=== PATIENT | male | born 1985 | race American Indian/Alaskan Native ===

== ENCOUNTER 2018-06-12 07:30 | Emergency (ER) | payer OTHER ==
[2018-06-12] MEDS ORDERED: NACL 0.9% 1000 ML 1,000 ML IV ONE (07:35)
[2018-06-12 07:59] LABS: Basophils # (Auto) 0.1 K/mm3 (0.0-0.1); Basophils % (Auto) 1.2 % (0.0-1.8); Eosinophils # (Auto) 0.2 K/mm3 (0.0-0.4); Eosinophils % (Auto) 5.6 % (0.0-4.3); Hematocrit 43.8 % (35.5-45.6); Hemoglobin 14.7 gm/dl (11.8-15.2); Lymphocytes # (Auto) 1.9 K/mm3 (1.2-5.4); Lymphocytes % (Auto) 42.2 % (13.4-35.0); Mean Corpuscular HGB Conc 34 % (32-34); Mean Corpuscular Volume 94 fl (84-94); Monocytes # (Auto) 0.4 K/mm3 (0.0-0.8); Platelet Count 232 K/mm3 (140-440); Red Blood Count 4.65 M/mm3 (3.65-5.03); Red Cell Distribution Width 13.5 % (13.2-15.2)
[2018-06-12 08:06] LABS: Bilirubin,Urine NEG (Negative); Blood,Urine NEG (Negative); Color,Urine Yellow (Yellow); Mucus,Urine FEW /HPF; Protein,Urine <15 mg/dL mg/dL (Negative)
[2018-06-12 08:47] LABS: Alanine Aminotransferase 18 units/L (7-56); Albumin 4.3 g/dL (3.9-5); BUN/Creatinine Ratio 13; Blood Urea Nitrogen 16 mg/dL (9-20); Calcium 9.1 mg/dL (8.4-10.2); Hemolysis Index 14
[2018-06-12] MEDS ORDERED: TYLENOL #3 PO ONE (09:02)
--- NOTE | 2018-06-12 09:29 | XRay Report ---
EXAM: XR ABD SERIES W CXR 1V HISTORY: abd pain TECHNIQUE: Supine and erect views of the abdomen; frontal single view CXR dated 06/12/2018 at 9:12 AM COMPARISON: None available. FINDINGS: ABDOMEN: Abundant fecal material is seen within the right-sided large bowel loops and rectum; nonspec ific finding; rule out constipation. The bowel gas pattern is nonspecific and nonobstructive. There is no gross organomegaly or free intraperitoneal air is seen. There are bilateral small pelvic calci fications (approximately 5.3 mm left pelvic calcification and approximately 2.9 mm distal right pelvi c calcification), presumed to represent a phleboliths, but consider follow-up CT if distal ureteral o bstructing stone is clinically suspected. The visualized bony structures are within normal limits. CHEST: The heart size and mediastinum are within normal limits. The lung verdugo and costophrenic angl es are clear. There is no acute parenchymal infiltrate, pleural effusion, or pneumothorax seen. The v isualized bony structures are within normal limits. IMPRESSION: 1. Abundant fecal material is seen within the right-sided large bowel loops and rectum; nonspecific finding; rule out constipation. 2. Bilateral small pelvic calcifications (approximately 5.3 mm left pelvic calcification and approxi mately 2.9 mm distal right pelvic calcification), presumed to represent a phleboliths, but consider f ollow-up CT if distal ureteral obstructing stone is clinically suspected. 3. No evidence for acute cardiopulmonary disease seen. This document is electronically signed by Duy Lauren MD., June 12 2018 09:27:45 AM ET
--- NOTE | 2018-06-12 09:57 | Emergency Department Report ---
ED Abdominal Pain HPI - General Chief Complaint: Abdominal Pain Stated Complaint: STOMACH PAIN Time Seen by Provider: 06/12/18 09:02 Source: patient Mode of arrival: Ambulatory Limitations: No Limitations - History of Present Illness Initial Comments: This is a 33-year-old male nontoxic, well nourished in appearance, no acute signs of distress presents to the ED with c/o of left upper abdominal pain x 2 months. Patient stated pain is cramping intermittent with burning sensation in the epigastric area. Patient denies any nausea or vomiting. Patient denies chest pain, short of breath, fever, chills, headache, stiff neck, numbness or tingling. Patient denies any diarrhea or constipation. Patient denies any recent travels. Patient denies any allergies. MD Complaint: abdominal pain -: month(s) (2) Location: [facility] Radiation: none Migration to: no migration Severity scale (0 -10): 3 Quality: cramping, aching Consistency: intermittent Improves With: nothing Worsens With: nothing Associated Symptoms: denies: nausea, vomiting, diarrhea, fever, chills, constipation, dysuria, hematemesis, hematochezia, melena, hematuria, anorexia, syncope - Related Data Previous Rx's Medication Instructions Recorded Last Taken Type Acetaminophen/Codeine [Tylenol 1 tab PO Q6H PRN #12 tab 06/12/18 Unknown Rx /Codeine # 3 tab] Docusate Sodium [Colace] 100 mg PO DAILY PRN #20 capsule 06/12/18 Unknown Rx Omeprazole 40 mg PO DAILY #20 capsule. 06/12/18 Unknown Rx Allergies Allergy/AdvReac Type Severity Reaction Status Date / Time No Known Allergies Allergy Unverified 06/12/18 07:32 ED Review of Systems ROS: Stated complaint: STOMACH PAIN Other details as noted in HPI Constitutional: denies: chills, fever Eyes: denies: eye pain, eye discharge, vision change ENT: denies: ear pain, throat pain Respiratory: denies: cough, shortness of breath, wheezing Cardiovascular: denies: chest pain, palpitations Endocrine: no symptoms reported Gastrointestinal: abdominal pain. denies: nausea, vomiting, diarrhea Genitourinary: denies: urgency, dysuria Musculoskeletal: denies: back pain, joint swelling, arthralgia Skin: denies: rash, lesions Neurological: denies: headache, weakness, paresthesias Psychiatric: denies: anxiety, depression Hematological/Lymphatic: denies: easy bleeding, easy bruising ED Past Medical Hx - Past Medical History Previous Medical History?: No - Surgical History Past Surgical History?: No - Social History Smoking Status: Never Smoker Substance Use Type: None - Medications Home Medications: Home Medications Medication Instructions Recorded Confirmed Last Taken Type Acetaminophen/Codeine [Tylenol 1 tab PO Q6H PRN #12 tab 06/12/18 Unknown Rx /Codeine # 3 tab] Docusate Sodium [Colace] 100 mg PO DAILY PRN #20 capsule 06/12/18 Unknown Rx Omeprazole 40 mg PO DAILY #20 capsule. 06/12/18 Unknown Rx ED Physical Exam - General Limitations: No Limitations General appearance: alert, in no apparent distress - Head Head exam: Present: atraumatic, normocephalic - Eye Eye exam: Present: normal appearance - Neck Neck exam: Present: normal inspection, full ROM. Absent: tenderness, meningismus, lymphadenopathy - Respiratory Respiratory exam: Present: normal lung sounds bilaterally. Absent: respiratory distress, wheezes, rales, rhonchi, stridor, chest wall tenderness, accessory muscle use, decreased breath sounds, prolonged expiratory - Cardiovascular Cardiovascular Exam: Present: regular rate, normal rhythm, normal heart sounds. Absent: bradycardia, tachycardia, irregular rhythm, systolic murmur, diastolic murmur, rubs, gallop - GI/Abdominal GI/Abdominal exam: Present: soft, normal bowel sounds. Absent: distended, tenderness, guarding, rebound, rigid, diminished bowel sounds - Expanded GI/Abdominal Exam Expanded GI/Abdominal exam: Absent: psoas sign, Solares's sign, Rovsing's sign, tenderness at Mcburney's Point, ascites - Rectal Rectal exam: Present: deferred - Extremities Exam Extremities exam: Present: normal inspection, full ROM, normal capillary refill - Back Exam Back exam: Present: normal inspection, full ROM. Absent: tenderness, CVA tende rness (R), CVA tenderness (L), muscle spasm, paraspinal tenderness, vertebral tenderness, rash noted - Neurological Exam Neurological exam: Present: alert, oriented X3, normal gait - Psychiatric Psychiatric exam: Present: normal affect, normal mood - Skin Skin exam: Present: warm, dry, intact, normal color. Absent: rash ED Course Vital Signs 06/12/18 06/12/18 06/12/18 07:32 09:23 10:19 Temperature 97.8 F Pulse Rate 60 Respiratory 16 18 18 Rate Blood Pressure 108/75 O2 Sat by Pulse 99 Oximetry - Reevaluation(s) Reevaluation #1: 06/12/18 10:37 Patient is speaking in full sentences with no signs of distress noted. ED Medical Decision Making - Lab Data Result diagrams: 06/12/18 07:40 06/12/18 07:40 - Medical Decision Making This is a 33-year-old male that presents with abdominal pain. Patient is stable and was examined by me. There is no abdominal tenderness. Negative signs of symptoms of appendicitis. Labs obtained. UA obtained. Xray and US of abdomen o btained and dictated by the radiologist. Symptoms and physical exam does not indicates any stones. Patient is notified of the report with no questions noted by the patient. Vital signs are stable prior to discharge. Patient received Bentyl in the ED which patient stated symptoms has resolved and subsided. A by mouth challenge has been obtained and patient tolerated well with no nausea vomiting. Patient was notified of strict precautions of appendicitis symptoms and to return to the ED if symptoms occurs as soon as possible. Patient was also instructed to Follow-up with a primary care doctor in 3-5 days or if symptoms worsen and continue return to emergency room as soon as possible. At t kojo of discharge, the patient does not seem toxic or ill in appearance. No acute signs of distress noted. Patient agrees to discharge treatment plan of care. No further questions noted by the patient. Critical care attestation.: If time is entered above; I have spent that time in minutes in the direct care of this critically ill patient, excluding procedure time. ED Disposition Clinical Impression: Constipation Qualifiers: Constipation type: unspecified constipation type Qualified Code(s): K59.00 - Constipation, unspecified Abdominal pain Qualifiers: Abdominal location: generalized Qualified Code(s): R10.84 - Generalized abdominal pain Disposition: - TO HOME OR SELFCARE Is pt being admited?: No Does the pt Need Aspirin: No Condition: Stable Instructions: Constipation (ED), Abdominal Pain (ED) Additional Instructions: Follow-up with a primary care doctor in 3-5 days or if symptoms worsen and continue return to emergency room as soon as possible. Prescriptions: Docusate Sodium [Colace] 100 mg PO DAILY PRN #20 capsule PRN Reason: constipation Omeprazole 40 mg PO DAILY #20 capsule. Acetaminophen/Codeine [Tylenol /Codeine # 3 tab] 1 tab PO Q6H PRN #12 tab PRN Reason: Pain , Severe (7-10) Referrals: [facility] [Other] - 3-5 Days [facility]IMARY [facility] [Referring] - 3-5 Days KIERSTEN WHITE MD [Staff Physician] - 3-5 Days [facility] [Outside] - 3-5 Days [facility] [Outside] - 3-5 Days Forms: Work/School Release Form(ED)
[2018-06-12] MEDS ORDERED: BENTYL PO ONE (10:00)
--- NOTE | 2018-06-12 10:40 | Ultrasound Report ---
EXAM: US ABDOMEN COMPLETE HISTORY: abd pain TECHNIQUE: Benjamin scale imaging, duplex Doppler and color flow Doppler imaging are performed with a cu rvilinear transducer. COMPARISON: None available. FINDINGS: LIVER: The liver is normal in size and echogenicity. There is no focal hepatic mass or perihepatic a scites seen. SPLEEN: The spleen is normal in size, measuring approximately 9.7 cm. There are no focal splenic le sions seen. GALLBLADDER: The gallbladder is normal in size and echogenicity. There is no gallbladder wall thicke yinka (2.7 mm), pericholecystic fluid, or sonographic Solares's sign appreciated. BILE DUCTS: No intrahepatic or extrahepatic biliary ductal dilatation is seen. The common bile duct m easures approximately 3.9 mm. KIDNEYS: Both kidneys are normal in size and echogenicity. The right kidney measures approximately 1 0.4 cm x 4.7 cm x 5.5 cm, and the left kidney measures approximately 11.2 cm x 4.9 cm x 5.4 cm. The r enal cortices are normal in thickness, measuring 1.6 cm on the right and 1.5 cm on the left. There is no hydronephrosis, shadowing calculus, renal mass, or perinephric fluid collections seen. MISCELLANEOUS: The aorta (1.8 cm AP diameter) and inferior vena cava are normal in size and contour. The pancreas is grossly unremarkable. IMPRESSION: 1. Unremarkable abdominal ultrasound. This document is electronically signed by Duy Lauren MD., June 12 2018 10:38:38 AM ET
[2018-06-12 11:01] VITALS: BP 136/60
== END 2018-06-12 10:57 | disposition home or self-care (01) ==
LOC: ED 07:30
DX: K59.00 Constipation, unspecified (principal)
CPT/HCPCS: 36415; 74022; 76700; 80053; 81001; 83690; 85025